=== PATIENT | male | born 1950 | race Native Hawaiian/Other Pacific Islander ===

== ENCOUNTER 2016-11-01 12:27 | Outpatient (CLI) | payer OTHER ==
[~2016-11-01 12:27] MED LIST: ASPIR-8181 MG OR; DULOXETINE HCL60 MG PO; GLIP10TA55 PO
[2016-11-01 13:15] LABS: PLATELET COUNT 189 K/uL (142-355)
[2016-11-01 13:56] LABS: POTASSIUM 4.6 mmol/L (3.6-5.2); SODIUM 136 mmol/L (136-145)
== END 2016-11-01 19:18 | disposition home or self-care (01) ==
LOC: LAB 12:27
PROVIDERS: Nurse Practitioner Family
DX: F41.8 Other specified anxiety disorders (principal); I50.9 Heart failure, unspecified; E11.9 Type 2 diabetes mellitus without complications; I48.2 Chronic atrial fibrillation
CPT/HCPCS: 80053; 80061; 83036; 84439; 84443; 85027

== ENCOUNTER 2019-07-26 10:13 | Inpatient (IN) | payer OTHER ==
[~2019-07-26] VITALS: Ht 185.4 cm; Wt 160.6 kg
[2019-07-26 10:21] VITALS: BP 153/76; TEMP 97.5
[2019-07-26 11:30] LABS: PLATELET COUNT 189 K/uL (142-355)
[2019-07-26 11:43] LABS: POTASSIUM 4.4 mmol/L (3.6-5.2); SODIUM 133 mmol/L (136-145)
[2019-07-26 17:35] VITALS: BP 147/75; TEMP 98.3; Ht 185.4 cm; Wt 160.6 kg
[2019-07-26] MEDS ORDERED: LOVASTATIN10 MG PO (17:36)
[2019-07-26] MEDS ORDERED: CEPHALEXIN500 MG PO (17:38)
[2019-07-26] MEDS ORDERED: CARV6.25 PO (17:39)
[2019-07-26] MEDS ORDERED: ELIQUIS5 MG PO (17:42)
[2019-07-26] MEDS ORDERED: LISI5TAB10 PO (17:42)
[2019-07-26] MEDS ORDERED: FURO40TA93 PO (17:43)
[2019-07-26] MEDS ORDERED: PACERONE200 MG PO (17:45)
[2019-07-26] MEDS ORDERED: GLIP10TA55 PO (17:47)
[2019-07-26] MEDS ORDERED: TAZTIA XT180 MG PO (17:47)
[2019-07-26] MEDS ORDERED: DULOXETINE HCL60 MG PO (17:50)
[2019-07-26] MEDS ORDERED: POTASSIUM CHLO20 ME1 PO (17:51)
[2019-07-26] MEDS ORDERED: TIAZA4 PO (19:31)
[2019-07-26 20:00] VITALS: BP 145/91; TEMP 97.6
[2019-07-27] VITALS: BP 135/74; TEMP 97.5
[2019-07-27 04:00] VITALS: BP 147/78; TEMP 97.5
[2019-07-27 05:23] LABS: PLATELET COUNT 194 K/uL (142-355)
[2019-07-27 08:00] VITALS: BP 118/77; TEMP 207.9
[2019-07-27 12:00] VITALS: BP 152/108; TEMP 97.2; TEMP 98.2
[2019-07-27 16:00] VITALS: TEMP 98.6
[2019-07-27 20:00] VITALS: BP 159/57; TEMP 97.3
[2019-07-28] VITALS: BP 122/68; TEMP 97.5
[2019-07-28 04:00] VITALS: BP 119/78; TEMP 97.5
[2019-07-28 08:00] VITALS: BP 130/65; TEMP 97.9
[2019-07-28 12:00] VITALS: BP 125/81; TEMP 97.7
[2019-07-28] MEDS ORDERED: FURO40TA93 PO (16:22)
[2019-07-28] MEDS ORDERED: AZIT250T3 PO (16:22)
[2019-07-28] MEDS ORDERED: CARDIZEM CD 180 MG PO (16:25)
== END 2019-07-28 17:32 | disposition home or self-care (01) | DRG 189 ==
LOC: ED 10:13 → MED/SURG 14:20
PROVIDERS: Internal Medicine; ADMIT Emergency Medicine
DX: J96.02 Acute respiratory failure with hypercapnia (principal); J44.1 Chronic obstructive pulmonary disease with (acute) exacerbation; I48.91 Unspecified atrial fibrillation; J96.01 Acute respiratory failure with hypoxia; G47.33 Obstructive sleep apnea (adult) (pediatric); E66.01 Morbid (severe) obesity due to excess calories; E11.42 Type 2 diabetes mellitus with diabetic polyneuropathy; I11.0 Hypertensive heart disease with heart failure; I50.9 Heart failure, unspecified
CPT/HCPCS: 36415; 36600; 80048; 80053; 82805; 83605; 83735; 83880; 84443; 84484; 85027; 87040; 87502; 94640; 94664; 94760; 96365; 96375; 99284; J0456; J0696; J1940; J2930

== ENCOUNTER 2019-09-07 11:22 | Observation (INO) | payer OTHER ==
[2019-09-07] VITALS (8 sets, daily range): BP systolic 116–156; BP diastolic 66–76; TEMP 97.5–97.8; Ht 182.9 cm; Wt 147.0 kg
[~2019-09-07] VITALS: Ht 182.9 cm; Wt 147.0 kg
[~2019-09-07 11:22] MED LIST changes: +AZIT250T3 PO; +CARDIZEM CD 180 MG PO; +CARV6.25 PO; +CEPHALEXIN500 MG PO; +ELIQUIS5 MG PO; +FURO40TA93 PO; +LISI5TAB10 PO; +LOVASTATIN10 MG PO; +PACERONE200 MG PO; +POTASSIUM CHLO20 ME1 PO; +TAZTIA XT180 MG PO; +TIAZA4 PO
[2019-09-07 12:25] LABS: PLATELET COUNT 126 K/uL (142-355)
[2019-09-07 12:31] LABS: POTASSIUM 3.8 mmol/L (3.6-5.2); SODIUM 137 mmol/L (136-145)
[2019-09-07 12:48] LABS: PARTIAL THROMBOPLASTIN TIME 30.6 SECONDS (24.5-33.6)
[2019-09-08] VITALS: BP 137/67; TEMP 97.5
[2019-09-08 04:00] VITALS: BP 126/71; TEMP 97.7
[2019-09-08 05:15] LABS: PLATELET COUNT 139 K/uL (142-355)
[2019-09-08 05:34] LABS: POTASSIUM 3.7 mmol/L (3.6-5.2)
[2019-09-08 08:00] VITALS: BP 158/71; TEMP 97.7
[2019-09-08 12:00] VITALS: BP 140/68; TEMP 98.1
== END 2019-09-08 13:19 | disposition home or self-care (01) ==
LOC: ED 11:22 → MED/SURG 13:00
PROVIDERS: Family Medicine; ADMIT Hospitalist
DX: J44.1 Chronic obstructive pulmonary disease with (acute) exacerbation (principal); I48.20 Chronic atrial fibrillation, unspecified; E66.01 Morbid (severe) obesity due to excess calories; I50.9 Heart failure, unspecified; E78.49 Other hyperlipidemia; E11.42 Type 2 diabetes mellitus with diabetic polyneuropathy; G47.33 Obstructive sleep apnea (adult) (pediatric); R09.02 Hypoxemia; D69.6 Thrombocytopenia, unspecified; D64.89 Other specified anemias; E78.00 Pure hypercholesterolemia, unspecified; I25.10 Atherosclerotic heart disease of native coronary artery without angina pectoris; D61.818 Other pancytopenia; E86.0 Dehydration; I11.0 Hypertensive heart disease with heart failure
CPT/HCPCS: 36415; 36600; 80053; 82550; 82805; 82947; 83880; 84484; 85027; 85610; 85730; 87070; 87077; 87186; 87205; 93005; 94640; 94664; 94760; 96374; 99220; 99284; G0378; J1815; J2930; J3490

== ENCOUNTER 2021-02-21 08:50 | Outpatient (CLI) | payer OTHER | END 2021-02-21 19:54 | disposition home or self-care (01) | LOC: RAD 08:50 | PROVIDERS: ATTEND Nurse Practitioner Family | DX: J20.4 Acute bronchitis due to parainfluenza virus (principal) ==

== ENCOUNTER 2021-04-13 11:16 | Outpatient (CLI) | payer OTHER | END 2021-04-13 17:51 | disposition home or self-care (01) | LOC: RAD 11:16 | PROVIDERS: ATTEND Nurse Practitioner Family | DX: J40 Bronchitis, not specified as acute or chronic (principal) ==

== ENCOUNTER 2021-07-25 16:38 | Inpatient (IN) | payer OTHER ==
[~2021-07-25] VITALS: Ht 182.9 cm; Wt 135.8 kg
[2021-07-25] VITALS (7 sets, daily range): BP systolic 113–173; BP diastolic 73–86; TEMP 98.2–98.6; Ht 182.9 cm; Wt 135.8 kg
[2021-07-25 17:08] LABS: PLATELET COUNT 160 K/uL (142-355)
[2021-07-25 17:16] LABS: POTASSIUM 3.6 mmol/L (3.6-5.2)
[2021-07-25 17:45] LABS: PARTIAL THROMBOPLASTIN TIME 32.7 SECONDS (24.5-33.6)
[2021-07-26] VITALS (8 sets, daily range): BP systolic 96–147; BP diastolic 60–94; TEMP 97.4–98
[2021-07-26] MEDS ORDERED: CLARITIN10 MG PO (11:56)
[2021-07-26] MEDS ORDERED: NEURONTIN 100M100 MG PO (11:57)
[2021-07-26] MEDS ORDERED: FURO40TA93 PO (12:00)
[2021-07-26] MEDS ORDERED: DILTIAZEM HYDRO90 MG PO (12:01)
[2021-07-26] MEDS ORDERED: MONT10TA PO (12:07)
[2021-07-26] MEDS ORDERED: METF100038 PO (12:09)
[2021-07-26] MEDS ORDERED: LIPITOR40 MG PO (12:10)
[2021-07-26] MEDS ORDERED: BUPROPION HYDR150 M1 PO (12:11)
[2021-07-26] MEDS ORDERED: TESTOST CYP200 MG/ML IM ×2 (12:14→12:37)
[2021-07-27 08:00] VITALS: BP 138/87; TEMP 98.3
[2021-07-27 08:43] LABS: PLATELET COUNT 200 K/uL (142-355)
[2021-07-27 08:50] LABS: POTASSIUM 4.1 mmol/L (3.6-5.2)
[2021-07-27 12:00] VITALS: BP 107/77; TEMP 98.4
[2021-07-27 16:00] VITALS: BP 126/77; TEMP 97.9
[2021-07-27 20:00] VITALS: BP 126/86; TEMP 97.6
[2021-07-28] VITALS: BP 141/71; TEMP 98
[2021-07-28 04:00] VITALS: BP 141/87; TEMP 97.4
[2021-07-28 05:08] LABS: PLATELET COUNT 169 K/uL (142-355)
[2021-07-28 05:11] LABS: POTASSIUM 4.2 mmol/L (3.6-5.2)
[2021-07-28 08:00] VITALS: BP 146/81; TEMP 97.3
[2021-07-28 12:00] VITALS: BP 121/78; TEMP 97.6
[2021-07-28 16:00] VITALS: BP 129/75; TEMP 97.9
[2021-07-28 20:00] VITALS: BP 138/84; TEMP 97.3
[2021-07-29] VITALS: BP 134/65; TEMP 97.5
[2021-07-29 04:00] VITALS: BP 130/78; TEMP 97
[2021-07-29 04:20] LABS: PLATELET COUNT 162 K/uL (142-355); POTASSIUM 4.2 mmol/L (3.6-5.2)
[2021-07-29 08:00] VITALS: BP 144/87; TEMP 98
[2021-07-29 12:00] VITALS: BP 129/79; TEMP 98.5
== END 2021-07-29 13:25 | disposition home or self-care (01) | DRG 191 ==
LOC: ED 16:38 → MED/SURG 19:00
PROVIDERS: Internal Medicine Endocrinology, Diabetes & Metabolism; ADMIT Hospitalist; ATTEND Internal Medicine
DX: J44.1 Chronic obstructive pulmonary disease with (acute) exacerbation (principal); Z68.41 Body mass index [BMI] 40.0-44.9, adult; I11.0 Hypertensive heart disease with heart failure; I50.9 Heart failure, unspecified; I48.91 Unspecified atrial fibrillation; Z79.01 Long term (current) use of anticoagulants; E11.42 Type 2 diabetes mellitus with diabetic polyneuropathy; F32.A Depression, unspecified; E66.01 Morbid (severe) obesity due to excess calories; E78.49 Other hyperlipidemia; G47.33 Obstructive sleep apnea (adult) (pediatric); E11.65 Type 2 diabetes mellitus with hyperglycemia
CPT/HCPCS: 36415; 36600; 80048; 80053; 82550; 82805; 83880; 84484; 85027; 85610; 85730; 87635; 93005; 94640; 94664; 94760; 96374; 96375; 99284; J0456; J1100; J1650; J1815; J1940; J2930; J3490; U0003

== ENCOUNTER 2022-08-29 17:27 | Emergency (ER) | payer OTHER ==
[~2022-08-29] VITALS: Ht 182.9 cm; Wt 135.6 kg
[2022-08-29 17:27] VITALS: TEMP 97.6
[~2022-08-29 17:27] MED LIST changes: +BUPROPION HYDR150 M1 PO; +CLARITIN10 MG PO; +DILTIAZEM HYDRO90 MG PO; +LIPITOR40 MG PO; +METF100038 PO; +MONT10TA PO; +NEURONTIN 100M100 MG PO; +TESTOST CYP200 MG/ML IM
[2022-08-29 19:25] VITALS: BP 137/88
== END 2022-08-29 19:25 | disposition home or self-care (01) ==
LOC: ED 17:27
DX: S32.049A Unspecified fracture of fourth lumbar vertebra, initial encounter for closed fracture (principal); V44.6XXA Car passenger injured in collision with heavy transport vehicle or bus in traffic accident, initial encounter; Y93.89 Activity, other specified; Y92.89 Other specified places as the place of occurrence of the external cause; R51.9 Headache, unspecified; M54.89 Other dorsalgia
CPT/HCPCS: 96374; 96375; 99284; J1170; J2405

== ENCOUNTER 2023-03-27 08:44 | Outpatient (CLI) | payer OTHER ==
[2023-03-27 09:15] LABS: POTASSIUM 4.3 mmol/L (3.6-5.2)
== END 2023-03-27 19:12 | disposition home or self-care (01) ==
LOC: LABW 08:44
PROVIDERS: ATTEND Internal Medicine Cardiovascular Disease
DX: R60.0 Localized edema (principal); I50.32 Chronic diastolic (congestive) heart failure; E78.49 Other hyperlipidemia
CPT/HCPCS: 36415; 80048; 80061; 83880